=== PATIENT | male | born 1980 | race African-American/Black ===

== ENCOUNTER 2017-07-01 19:13 | Emergency (ER) | payer MEDICAID, OTHER ==
[~2017-07-01] VITALS: Ht 175.3 cm; Wt 95.0 kg
[2017-07-01] MEDS ORDERED: METHYLPREDNISOLONE SOD SUCC 125 MG/2 ML VIAL IV STA (19:21)
[2017-07-01] MEDS ORDERED: IPRATROPIUM/ALBUTEROL 0.5-3(2.5)MG/3ML NEB HHN ONE (19:30)
[2017-07-01] MEDS ORDERED: IPRATROPIUM/ALBUTEROL 0.5-3(2.5)MG/3ML NEB ONE (19:37)
[2017-07-01 20:26] LABS: BASOPHILS % 0.5 % (0.0-2.0); EOSINOPHILS % 2.8 % (0.0-5.0); HEMATOCRIT. 41.3 % (42.0-52.0); HEMOGLOBIN. 13.4 g/dL (14.0-18.0); MEAN CORPUSCULAR HEMOGLOBIN 29.7 pg (28.0-32.0); MEAN CORPUSCULAR VOLUME 91.8 fL (80.0-94.0); MEAN PLATELET VOLUME 9.2 fl (7.4-10.4); NEUTROPHILS % 68.7 % (40.0-76.0); PLATELET 260 x1000/uL (130-400); RED CELL DISTRIBUTION WIDTH 12.7 % (11.6-14.6)
[2017-07-01 20:29] LABS: CHLORIDE 103 mEq/L (98-107)
[2017-07-01 20:35] LABS: TROPONIN I < 0.02 ng/mL (0.00-0.04)
[2017-07-01 22:08] VITALS: BP 143/64
== END 2017-07-01 22:11 | disposition home or self-care (01) ==
LOC: ER 19:59
DX: J45.909 Unspecified asthma, uncomplicated (principal); R03.0 Elevated blood-pressure reading, without diagnosis of hypertension; F17.210 Nicotine dependence, cigarettes, uncomplicated
CPT/HCPCS: 36415; 71045; 80053; 84484; 85025; 93005; 94640; 96374; 99285; J2930; J7620

== ENCOUNTER 2018-02-21 08:44 | Emergency (ER) | payer SELFPAY ==
[~2018-02-21] VITALS: Ht 177.8 cm; Wt 85.0 kg
[2018-02-21 09:16] VITALS: BP 155/88
[2018-02-21] MEDS ORDERED: PREDNISONE 20MG TABLET PO ONE (10:00)
== END 2018-02-21 10:51 | disposition home or self-care (01) ==
LOC: ER 08:44
DX: J45.901 Unspecified asthma with (acute) exacerbation (principal); R03.0 Elevated blood-pressure reading, without diagnosis of hypertension
CPT/HCPCS: 99283; J7512; Z7610